=== PATIENT | male | born 1950 | race Caucasian/White ===

== ENCOUNTER → 2016-07-01 | Outpatient (CLI) | payer OTHER, BC ==
[~2016-07-01] MED LIST: GADAVIST IV PRN
--- NOTE | 2016-07-01 09:55 | DIAGNOSTIC IMAGING REPORT ---
[facility] RADIOGRAP[facility] 3 VIEWS HISTORY: Pre-MRI screening. COMPARISON: None. FINDINGS: There are no radiopaque foreign bodies identified within the orbits. IMPRESSION: No radiopaque foreign bodies identified within the orbits. Electronically signed by: Torsten Robertson M.D. 07/01/2016 9:53 AM Dictated Date/Time: 07/01/2016 9:52 AM
--- NOTE | 2016-07-01 11:45 | DIAGNOSTIC IMAGING REPORT ---
MRI LUMBAR SPINE COMBO CLINICAL HISTORY: Chronic low back pain. Leg weakness. Fatigue. COMPARISON STUDY: No priors. TECHNIQUE: MRI of the lumbar spine is performed utilizing various T1 and T2-weighted sequences in the axial and sagittal planes. Contrast-enhanced images were acquired following the IV administration of 9.5 cc of Gadavist. The examination is severely degraded by open MRI technique. FINDINGS: Lumbar spine: Vertebral body height is maintained throughout the lumbar spine. There is minimal retrolisthesis at L1-L2, L2-L3, and L4-L5. There is partial sacralization of the L5 vertebral body. Chronic degenerative endplate change is seen at L1-L2, L2-L3, and L4-L5. Small anterior osteophytes are seen throughout. No destructive bony lesion is seen. The transverse and spinous processes are intact as imaged. There is no evidence of spondylolysis. Vertebral discs: There is degenerative disc desiccation and loss of height throughout the lumbar spine. Loss of height is moderate at L2-L3 and L4-L5. Spinal cord: The partially imaged spinal cord is normal in morphology and signal intensity. The conus medullaris terminates at the level of T12. No abnormal enhancement is identified on the postcontrast images. The nerve roots of the cauda equina are normal in appearance. T12-L1: Unremarkable. L1-L2: There is minimal posterior disc bulge. The central canal is clear. Mild subarticular stenosis is observed. The neural foramina are patent. L2-L3: There is broad-based posterior disc bulge with annular fissure. In conjunction with hypertrophy of the ligamentum flavum, there is mild acquired compromise of the central canal at this level with a minimum AP diameter of 8.5 mm. There is bilateral subarticular stenosis. The neural foramina are patent. Facet arthropathy is of no consequence. L3-L4: There is posterior disc bulge with annular fissure. No significant acquired compromise of the central canal is identified at this level. There is mild bilateral subarticular stenosis. Facet arthropathy causes mild left neural foraminal stenosis. L4-L5: There is minimal posterior disc bulge. The central canal is patent. A large lateral marginal osteophyte on the left may impinge on the exiting left L4 nerve root. Facet arthropathy causes mild to moderate left neural foraminal stenosis. The right neural foramen is clear. L5-S1: Unremarkable. Sacrum: The visualized sacrum is normal in morphology and signal intensity. Soft tissues: The paraspinous soft tissues are within normal limits. The retroperitoneal structures are grossly normal as imaged, but incompletely assessed. IMPRESSION: 1. Multilevel degenerative disc disease with associated endplate change as above. There is mild acquired compromise of the central canal at L2-L3. 2. Mild spondylotic change is seen at additional levels as above. See discussion for detailed level by level analysis. 3. No destructive bony lesion is identified. Dictated: 07/01/2016 11:02 AM Transcribed: 07/01/2016 11:44 AM [email or web address] Electronically signed by: Mook Joshi M.D. 07/01/2016 11:47 AM Dictated Date/Time: 07/01/2016 11:02 AM
== END | disposition home or self-care (01) ==
LOC: C.OPENMRI 08:33
PROVIDERS: ATTEND Internal Medicine
DX: M62.81 Muscle weakness (generalized) (principal); R53.83 Other fatigue; M51.36 Other intervertebral disc degeneration, lumbar region

== ENCOUNTER → 2016-07-08 | Outpatient (CLI) | payer OTHER, BC ==
--- NOTE | 2016-07-08 10:40 | DIAGNOSTIC IMAGING REPORT ---
MRI OF THE CERVICAL SPINE WITHOUT IV CONTRAST CLINICAL HISTORY: Cervicalgia. Numbness. COMPARISON STUDY: No priors. TECHNIQUE: MRI of the cervical spine is performed utilizing various T1 and T2-weighted sequences in the axial and sagittal planes. IV contrast was not administered for this examination. The examination is significantly degraded by open MRI technique. FINDINGS: Cervical spine: Vertebral body height is maintained throughout the cervical spine. There is minimal anterolisthesis at C4-C5 and minimal retrolisthesis at C5-C6. Alignment is otherwise preserved. The atlantodental articulation appears maintained. The spinous processes appear intact. A large hemangioma is noted in the body of T2. No destructive bony lesion is suspected. Small anterior osteophytes are noted in the lower cervical spine region. Intervertebral discs: There is degenerative disc desiccation seen throughout the cervical spine. Mild loss of height is seen at C5-C6. Spinal cord: The cervical spinal cord is normal in morphology and signal intensity. C2-C3: Facet arthropathy causes minimal left-sided neural foraminal stenosis. C3-C4: A posterior disc osteophyte complex effaces the ventral subarachnoid space. Uncovertebral and facet arthropathy cause mild to moderate right and minimal left neural foraminal stenosis. C4-C5: A posterior disc osteophyte complex eccentric to the right abuts the ventral cord. Uncovertebral and facet arthropathy cause moderate right greater than left neural foraminal stenosis. A 4 mm nerve sheath cyst is noted within the right neural foramen. C5-C6: A posterior disc osteophyte complex eccentric to the right effaces the ventral cord. The minimum AP canal diameter at this level measures 7.5 mm. Uncovertebral and facet arthropathy causes severe bilateral neural foraminal stenosis. C6-C7: A posterior disc osteophyte complex eccentric to the left effaces the ventral cord. Uncovertebral and facet arthropathy cause severe bilateral neural foraminal stenosis, left greater than right. C7-T1: The central canal and neural foramina are widely patent. A nerve sheath cyst within the right neural foramen measures up to 6 mm. Soft tissues: The prevertebral and paraspinous soft tissues are normal as visualized. Brain parenchyma: Partially imaged brain parenchyma at the skull base is within normal limits. IMPRESSION: 1. Multilevel cervical spondylosis as detailed above. This is greatest from C4-C5 through C6-C7. See discussion for detailed level by level analysis. 2. No destructive bony process is identified. Dictated: 07/08/2016 10:02 AM Transcribed: 07/08/2016 10:38 AM [email or web address] Electronically signed by: Mook Joshi M.D. 07/08/2016 11:10 AM Dictated Date/Time: 07/08/2016 10:02 AM
== END | disposition home or self-care (01) ==
LOC: C.OPENMRI 08:31
PROVIDERS: ATTEND Internal Medicine
DX: M47.812 Spondylosis without myelopathy or radiculopathy, cervical region (principal); R20.0 Anesthesia of skin

== ENCOUNTER → 2017-07-09 | Outpatient (CLI) | payer OTHER, BC ==
[~2017-07-09] VITALS: Ht 172.7 cm; Wt 96.6 kg
[2017-07-09 15:06] VITALS: BP 131/88; PULSE 92; Ht 172.7 cm; Wt 96.6 kg
== END | disposition home or self-care (01) ==
LOC: C.NEUR 14:39
PROVIDERS: ATTEND Internal Medicine Pulmonary Disease
DX: G47.33 Obstructive sleep apnea (adult) (pediatric) (principal); Z99.89 Dependence on other enabling machines and devices; I10 Essential (primary) hypertension; E78.5 Hyperlipidemia, unspecified; Z79.899 Other long term (current) drug therapy